=== PATIENT | female | born 1970 | race African-American/Black ===

== ENCOUNTER 2016-07-24 03:21 | Emergency (ER) | payer OTHER ==
[~2016-07-24] VITALS: Ht 182.9 cm; Wt 105.6 kg
[~2016-07-24 03:21] MED LIST: ACTOS15 MG PO; AMARYL4 MG PO; AUGMENTIN875 MG PO; BENADRYL25 MG PO; BENICAR HCT 401 EAC1 PO; CRESTOR20 MG PO; EPIPEN ADU0.3 MG/0.3 IM; Ecotrin PO; HYDROCODON-ACE1 EAC7 PO; IMITREX PO; IMITREX25 MG PO; IMITREX50 MG PO; JANUVIA100 MG PO; KEFLEX500 MG PO; KLONOPIN0.5 M1 PO; LEXAPRO20 MG PO; LITHIUM CARBON600 MG PO; MOTRIN800 MG PO; Motrin PO; NAPROSYN500 MG PO; NORCO 5/3251 TABLET PO; Norvasc PO; PREDNISONE20 MG PO; PROZAC40 MG PO; PROzac PO; REGLAN10 MG PO; ULTRAM50 MG PO; WELLBUTRIN SR150 MG PO; WELLBUTRIN SR200 MG PO
[2016-07-24 04:25] VITALS: BP 136/88
== END 2016-07-24 04:28 | disposition home or self-care (01) ==
LOC: EME 03:21
DX: S60.221A Contusion of right hand, initial encounter (principal); W51.XXXA Accidental striking against or bumped into by another person, initial encounter
CPT/HCPCS: 73110; 73130; 99281; 99283

== ENCOUNTER → 2016-08-25 | Outpatient (CLI) | payer OTHER | END | disposition home or self-care (01) | LOC: RAD 11:16 | DX: M25.531 Pain in right wrist (principal) | CPT/HCPCS: 73110 ==

== ENCOUNTER → 2017-02-13 | Outpatient (CLI) | payer OTHER | END | disposition home or self-care (01) | LOC: RAD 11:32 | DX: M17.0 Bilateral primary osteoarthritis of knee (principal) | CPT/HCPCS: 73560 ==